=== PATIENT | female | born 1965 | race Caucasian/White ===

== ENCOUNTER 2023-08-31 09:27 | Emergency (ER) | payer OTHER ==
[~2023-08-31] VITALS: Ht 165.1 cm; Wt 90.7 kg
[2023-08-31 10:12] LABS: BASOPHILS 1.3 % (0-2); EOSINOPHILS 1.7 % (0-6); HEMATOCRIT 44.7 % (35.0-50.0); HEMOGLOBIN 15.2 g/dL (12.0-18.0); LYMPHOCYTES 32.4 % (24-44); MCH 31.2 (27-36); MCHC 34.1 g/dl (30-36); MCV 91.5 fl (81-99); MONOCYTES 9.5 % (0-12); NEUTROPHILS 55.1 % (39-80); PLATELET COUNT 234 K/uL (140-440); RBC 4.88 M/ul (4.3-5.7); RDW 12.9 (10.5-15.0)
[2023-08-31 10:26] LABS: ALBUMIN 4.1 g/dL (3.4-5.0); ALBUMIN/GLOBULIN RATIO 1.08 (1.1-2.4); BILIRUBIN, TOTAL 0.7 ng/dL (0.2-1.0); BUN/CREATININE RATIO 17.77 (6.0-28.6); CALCIUM 8.9 mg/dL (8.5-10.1); CREATININE, SERUM 0.9 mg/dL (0.55-1.02); PROTEIN, TOTAL 7.9 g/dL (6.4-8.2)
[2023-08-31] MEDS ORDERED: ESTRADIOL42.5 GM TOP (12:01)
[2023-08-31 13:10] VITALS: BP 131/80
--- NOTE | 2023-09-01 06:53 | EKG ---
[facility] [address] [facility] [place], [place] [address] Signed Normal sinus rhythm Normal ECG No previous ECGs available Confirmed by TRACEY ALBA MD ([id number]) on 09/01/2023 6:53:46 AM Electronically Signed By: TRACEY ALBA 09/01/23 0653 PATIENT NAME: SILVESTRE PEACOCK Electrocardiogram DATE OF : 65 PHYSICIAN: TRACEY ALBA REPORT #: [id number] REPORT IS CONFIDENTIAL AND NOT TO BE RELEASED WITHOUT AUTHORIZATION
== END 2023-08-31 13:10 | disposition home or self-care (01) ==
LOC: ED 09:27
PROVIDERS: Emergency Medicine
DX: R20.2 Paresthesia of skin (principal); M54.2 Cervicalgia; E04.1 Nontoxic single thyroid nodule; R51.9 Headache, unspecified; Z91.040 Latex allergy status; Z79.899 Other long term (current) drug therapy
CPT/HCPCS: 36415; 70450; 70496; 70498; 80053; 85025; 93005; 93010; J1885; Q9967

== ENCOUNTER 2025-04-23 20:06 | Emergency (ER) | payer OTHER ==
[~2025-04-23] VITALS: Ht 165.1 cm; Wt 98.3 kg
[~2025-04-23 20:06] MED LIST: ESTRADIOL42.5 GM TOP; VENTOLIN HFA18 GM INH
[2025-04-23] MEDS ORDERED: ASPIRIN 81 MG CHEW PO ONE (20:15)
[2025-04-23] MEDS ORDERED: NITROGLYCERIN 0.4 MG SUBL SL PRN (20:15)
[2025-04-23 20:19] LABS: BASOPHILS 1.6 % (0.1-1.2); EOSINOPHILS 3.7 % (0.7-5.8); HEMATOCRIT 43.6 % (34.1-44.9); HEMOGLOBIN 14.6 g/dL (11.2-15.7); LYMPHOCYTES 40.1 % (19.3-51.7); MCH 30.7 PG (25.6-32.2); MCHC 33.5 g/dL (32.2-35.5); MCV 91.8 fL (79.4-94.8); NEUTROPHILS 44.2 % (34.0-71.1); PLATELET COUNT 255 K/uL (182-369); RBC 4.75 M/uL (3.93-5.22)
[2025-04-23 20:40] LABS: ALBUMIN 3.6 g/dL (3.4-5.0); ALBUMIN/GLOBULIN RATIO 0.86 (1.1-2.4); ANION GAP 15.3 (7-21); BILIRUBIN, TOTAL 0.4 mg/dL (0.2-1.0); BUN/CREATININE RATIO 15.78 (6.0-28.6); CALCIUM 8.7 mg/dL (8.5-10.1); CREATININE, SERUM 1.14 mg/dL (0.55-1.02); MAGNESIUM 2.1 mg/dL (1.8-2.4); POTASSIUM 4.3 mmol/L (3.5-5.1); PROTEIN, TOTAL 7.8 g/dL (6.4-8.2)
[2025-04-23] MEDS ORDERED: SODIUM CHLORIDE 0.9% 500 ML IV PRN (20:45)
[2025-04-23] MEDS ORDERED: ONDANSETRON ODT8 MG PO (21:53)
[2025-04-23] MEDS ORDERED: HYDROCODON-ACE1 EA10 PO (21:56)
[2025-04-23] MEDS ORDERED: ONDANSETRON 4 MG HOME.PACK SL ONE (22:00)
[2025-04-23] MEDS ORDERED: HYDROCODONE BIT/ACETAMINOPHEN 5/325 MG 1 TAB HOME.PACK PO ONE (22:00)
[2025-04-23 22:20] VITALS: BP 121/68
--- NOTE | 2025-04-24 19:36 | EKG ---
[facility] [address] [facility] [place], [place] [address] Signed Normal sinus rhythm Nonspecific ST abnormality Abnormal ECG Confirmed by Huan Gallardo DO ([id number]) on 04/24/2025 7:35:54 PM Electronically Signed By: HUAN GALLARDO DO 04/24/251935 PATIENT NAME: SILVESTRE PEACOCK Electrocardiogram DATE OF : 65 PHYSICIAN: HUAN GALLARDO DO REPORT #: [id number] REPORT IS CONFIDENTIAL AND NOT TO BE RELEASED WITHOUT AUTHORIZATION
== END 2025-04-23 22:20 | disposition home or self-care (01) ==
LOC: ED 20:06
PROVIDERS: Family Medicine
DX: K85.90 Acute pancreatitis without necrosis or infection, unspecified (principal); Z91.040 Latex allergy status; Z91.048 Other nonmedicinal substance allergy status
CPT/HCPCS: 36415; 71045; 80053; 83690; 83735; 84484; 85025; 85379; 93005; 93010; 99285-25; A9270